=== PATIENT | male | born 1990 | race Caucasian/White ===

== ENCOUNTER → 2022-05-30 07:01 | Outpatient (CLI) | payer OTHER, SELFPAY ==
--- NOTE | ~2022-05-30 | MR_ITS ---
EXAMINATION: MR knee RT wo con DATE: 05/30/2022 07:34 INDICATION: Right knee pain. TECHNIQUE: Magnetic resonance imaging (MRI) of the right knee was performed without intravenous contr ast. Sequences included axial PD-weighted FS FSE, coronal PD-weighted FSE and PD-weighted FS FSE, sag ittal PD-weighted FSE, and sagittal T2-weighted FS FSE. COMPARISON: None. FINDINGS: Medial compartment: Medial meniscus is normal. Tibial cartilage is normal. There is deep fissuring of the central articul ar cartilage of femoral condyle with moderate subchondral edema-like marrow signal intensity. There i s shallow partial-thickness cartilage loss of femoral condyle involving the lateral articular surface . Lateral compartment: Lateral meniscus is normal. Lateral compartment cartilage is normal. Patellofemoral compartment: There is shallow partial-thickness cartilage loss involving patellar medial facet and median ridge. T rochlear cartilage is normal. Ligaments and tendons: The anterior and posterior cruciate ligaments are normal. Medial collateral ligament and lateral [place] ateral ligament complex are normal. The patellar tendon is normal. Fluid: There is a small knee joint effusion. IMPRESSION: 1. 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 2. Small knee joint effusion. Reviewed, dictated and finalized at location A. [employer]
== END ==
PROVIDERS: PCP Orthopaedic Surgery; Visit Provider Orthopaedic Surgery
DX: M25.461 Effusion, right knee (principal)
CPT/HCPCS: 73721